=== PATIENT | male | born 1980 | race Caucasian/White ===

== ENCOUNTER 2020-06-12 13:41 | Emergency (ER) | payer OTHER ==
[~2020-06-12] VITALS: Ht 177.8 cm; Wt 101.2 kg
[2020-06-12 14:12] VITALS: BP 142/92; Ht 177.8 cm; Wt 101.2 kg
== END 2020-06-12 16:05 | disposition home or self-care (01) ==
LOC: ED 13:41
DX: S63.8X2A Sprain of other part of left wrist and hand, initial encounter (principal); S20.213A Contusion of bilateral front wall of thorax, initial encounter; V49.49XA Driver injured in collision with other motor vehicles in traffic accident, initial encounter; Y93.I9 Activity, other involving external motion; Y92.488 Other paved roadways as the place of occurrence of the external cause; Y99.8 Other external cause status
CPT/HCPCS: A4570